=== PATIENT | male | born 1990 | race Two or more races ===

== ENCOUNTER 2016-08-24 20:25 | Emergency (ER) | payer MEDICAID ==
[~2016-08-24] VITALS: Ht 172.7 cm; Wt 70.3 kg
[2016-08-24 20:47] VITALS: BP 98/62
[2016-08-24] MEDS ORDERED: TETANUS-DIPTH-ACEL PERTUSSIS 0.5ML SYRG IM ONE (21:45)
== END 2016-08-24 21:49 | disposition home or self-care (01) ==
LOC: ER 20:49
DX: S61.011A Laceration without foreign body of right thumb without damage to nail, initial encounter (principal); Z23 Encounter for immunization; W45.8XXA Other foreign body or object entering through skin, initial encounter; Y93.G1 Activity, food preparation and clean up; Y99.8 Other external cause status; Y92.89 Other specified places as the place of occurrence of the external cause
CPT/HCPCS: 12002; 90471; 90715

== ENCOUNTER 2016-09-03 12:58 | Emergency (ER) | payer MEDICAID ==
[~2016-09-03] VITALS: Ht 172.7 cm; Wt 70.3 kg
[2016-09-03 15:26] VITALS: BP 118/77
== END 2016-09-03 15:40 | disposition home or self-care (01) ==
LOC: ER 12:59
DX: S61.011D Laceration without foreign body of right thumb without damage to nail, subsequent encounter (principal); Z48.02 Encounter for removal of sutures